=== PATIENT | male | born 1995 | race African-American/Black ===

== ENCOUNTER 2024-01-05 15:13 | Emergency (ER) | payer MEDICAID, OTHER, SELFPAY ==
[2024-01-05 15:16] VITALS: BP 134/83; PULSE 104; RESP 14; TEMP 36.6; O2SAT 97; BMI 35.4
--- NOTE | 2024-01-05 19:06 | ED.DENTAL ---
HPI - Dental/Oral General Chief complaint: Dental/Oral Stated complaint: right side face swelling x 5 days Time Seen by Provider: 01/05/24 18:13 Mode of arrival: Ambulatory History of Present Illness HPI Narrative: 28-year-old male presents for right facial pain and swelling. Has been ongoing for the last 3-4 days. It seemed even larger today than normal so he decided to present for evaluation. He states that he has an appointment with a dentist tomorrow, but is here for antibiotics. He states that since he has been in the emergency department his swelling seems to have gone down somewhat. Related Data Previous Rx's Medication Instructions Recorded amoxicillin 875 mg-potassium 1 tab PO Q12H #20 tabs 01/05/24 clavulanate 125 mg tablet Allergies Allergy/AdvReac Type Severity Reaction Status Date / Time No Allergy Information Allergy Verified 01/05/24 19:35 Available Patient History Social History Smoking Status: Current every day smoker Smoking Status: Current every day smoker tobacco type: cigarettes alcohol intake frequency: 0-2 drinks per day Substance Use Type: does not use Exam Initial Vital Signs Initial Vital Signs: Vital Signs Temperature 97.8 F 01/05/24 15:16 Pulse Rate 104 H 01/05/24 15:16 Respiratory Rate 14 01/05/24 15:16 Blood Pressure 134/83 01/05/24 15:16 Pulse Oximetry 97 01/05/24 15:16 Oxygen Delivery Method Room Air 01/05/24 15:16 Const: Awake, alert, no acute distress, nontoxic appearing Mouth: Mandibular swelling right-hand side, no trismus, extensive dental caries, no obvious abscess Skin: Warm, Dry, intact, no rashes Neuro: AO x3, CN II-XII grossly intact, moves all extremities Course Orders Ordered: Discontinued Medications Amoxicillin/Clavulanate Potassium (Amoxicillin/Clav 875/125 Mg) 1 tab PO NOW ONE Stop: 01/05/24 19:08 Last Admin: 01/05/24 19:13 Dose: 1 tab Documented By: MIKKI Vital Signs Vital signs: Vital Signs - 8 hr 01/05/24 15:16 Temperature 97.8 F Pulse Rate 104 H Respiratory Rate 14 Blood Pressure 134/83 Pulse Oximetry 97 Oxygen Delivery Method Room Air MDM - Dental/Oral Differential Diagnosis Differential diagnosis: Likely gingival abscess, dental caries and toothache MDM Narrative Medical decision making narrative: Right mandibular swelling with extensive dental caries, likely dental infection. No obvious abscess amenable to drainage here in the emergency department. Patient states that since he has been in the ER his swelling has gone down somewhat. He was requesting antibiotics and has plans to see a dentist tomorrow. First dose given in the emergency department as all pharmacies are currently closed. Discharge Plan Departure Patient Disposition: Home Clinical Impression: Dental infection Instructions: Tooth Abscess Activity Restrictions/Additional Instructions: Finish all antibiotics as prescribed. Follow up with the dentist as scheduled. Prescriptions: New amoxicillin-pot clavulanate 875-125 mg tablet 1 tab PO Q12H Qty: 20 0RF Stand Alone Forms: Patient Portal/API
[2024-01-05 19:13] VITALS: BP 133/83; PULSE 90; RESP 16; O2SAT 100
[2024-01-05] MEDS: AMOXICILLIN/CLAV 875/125 MG 1 TAB PO (19:13)
== END 2024-01-05 19:17 | disposition home or self-care (01) ==
PROVIDERS: Emergency Provider Emergency Medicine
DX: K04.7 Periapical abscess without sinus (principal)
CPT/HCPCS: 99283

== ENCOUNTER 2025-03-08 12:49 | Emergency (ER) | payer OTHER, MEDICAID, SELFPAY ==
[2025-03-08 12:54] VITALS: BP 134/72; PULSE 84; RESP 16; TEMP 36.5; O2SAT 98; BMI 30.1
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
[2025-03-08] MEDS: LIDOCAINE 1% W/EPI 10ML 4 ML INJ (13:17)
[2025-03-08] MEDS: OXYMETAZOLINE NASAL SPRAY 30 ML 2 SPRAYS NASAL (13:31)
== END 2025-03-08 14:41 | disposition home or self-care (01) ==
PROVIDERS: Emergency Provider Physician Assistant Medical
DX: S02.2XXA Fracture of nasal bones, initial encounter for closed fracture (principal); Y04.2XXA Assault by strike against or bumped into by another person, initial encounter
CPT/HCPCS: 21315; 99283; 99284